=== PATIENT | male | born 1965 | race Caucasian/White ===

== ENCOUNTER → 2017-04-22 | Outpatient (CLI) | payer BC ==
[2017-04-22 13:45] LABS: HEMATOCRIT 52.7 % (42.0-52.0); HEMOGLOBIN 17.1 g/dl (14.0-18.0); MEAN CORPUSCULAR HEMOGLOBIN 30.6 pg (27.0-33.0); MEAN CORPUSCULAR HGB CONC 32.4 g/dl (32.0-36.5); MEAN CORPUSCULAR VOLUME 94.4 fl (80.0-96.0); PLATELET COUNT, AUTOMATED 293 10^3/uL (150-450); RED BLOOD COUNT 5.58 10^6/uL (4.30-6.10); RED CELL DISTRIBUTION WIDTH 13.2 % (11.5-14.5)
[2017-04-22 14:14] LABS: ALBUMIN 3.4 GM/DL (3.2-5.2); ALBUMIN/GLOBULIN RATIO 0.71 (1.00-1.93); ALKALINE PHOSPHATASE 88 U/L (45-117); ALT/SGPT 93 U/L (12-78); ANION GAP 7 MEQ/L (8-16); AST/SGOT 70 U/L (7-37); BILIRUBIN,TOTAL 0.6 MG/DL (0.2-1.0); BLOOD UREA NITROGEN 11 MG/DL (7-18); CALCIUM LEVEL 9.2 MG/DL (8.5-10.1); CARBON DIOXIDE LEVEL 32 MEQ/L (21-32); CHLORIDE LEVEL 100 MEQ/L (98-107); CHOLESTEROL LEVEL 191 MG/DL (<200); CHOLESTEROL RISK RATIO 4.441 (<5); CREATININE FOR GFR 0.98 MG/DL (0.70-1.30); GLOMERULAR FILTRATION RATE > 60.0 (>56); GLUCOSE, FASTING 98 MG/DL (70-100); HDL CHOLESTEROL 43 MG/DL (>40); LDL CHOLESTEROL 127.6 MG/DL (<100); NON-HDL-C 148 MG/DL; NT-PRO BNP 40 PG/ML (<125); SODIUM LEVEL 139 MEQ/L (136-145); TOTAL PROTEIN 8.2 GM/DL (6.4-8.2); TRIGLYCERIDES LEVEL 102 MG/DL (<150)
== END ==
LOC: M SMT 10:32
DX: I50.1 Left ventricular failure, unspecified (principal)

== ENCOUNTER → 2017-06-05 | Outpatient (CLI) | payer BC | LOC: M SMT 10:43 | DX: G47.33 Obstructive sleep apnea (adult) (pediatric) (principal) ==

== ENCOUNTER → 2017-06-05 | Outpatient (CLI) | payer BC ==
[2017-06-05 12:58] LABS: HEMOGLOBIN 16.1 g/dl (14.0-18.0); MEAN CORPUSCULAR HEMOGLOBIN 30.6 pg (27.0-33.0); MEAN CORPUSCULAR HGB CONC 32.9 g/dl (32.0-36.5); PLATELET COUNT, AUTOMATED 230 10^3/uL (150-450); RED BLOOD COUNT 5.27 10^6/uL (4.30-6.10); RED CELL DISTRIBUTION WIDTH 13.4 % (11.5-14.5); WHITE BLOOD COUNT 6.7 10^3/uL (4.0-10.0)
[2017-06-05 13:23] LABS: ALBUMIN 3.4 GM/DL (3.2-5.2); ALBUMIN/GLOBULIN RATIO 0.81 (1.00-1.93); ALKALINE PHOSPHATASE 80 U/L (45-117); ALT/SGPT 100 U/L (12-78); ANION GAP 6 MEQ/L (8-16); AST/SGOT 73 U/L (7-37); BILIRUBIN,TOTAL 0.5 MG/DL (0.2-1.0); BLOOD UREA NITROGEN 15 MG/DL (7-18); CALCIUM LEVEL 8.8 MG/DL (8.5-10.1); CARBON DIOXIDE LEVEL 32 MEQ/L (21-32); CHLORIDE LEVEL 100 MEQ/L (98-107); CREATININE FOR GFR 0.99 MG/DL (0.70-1.30); GLOMERULAR FILTRATION RATE > 60.0 (>56); GLUCOSE, FASTING 100 MG/DL (70-100); NT-PRO BNP 38 PG/ML (<125); POTASSIUM SERUM 4.6 MEQ/L (3.5-5.1); SODIUM LEVEL 138 MEQ/L (136-145); TOTAL PROTEIN 7.6 GM/DL (6.4-8.2)
== END ==
LOC: M SMT 10:47
DX: I50.9 Heart failure, unspecified (principal)

== ENCOUNTER → 2017-06-17 | Outpatient (CLI) | payer BC | LOC: M SLEEP 19:15 | DX: G47.33 Obstructive sleep apnea (adult) (pediatric) (principal) | CPT/HCPCS: 95811 ==

== ENCOUNTER 2019-12-29 14:50 | Inpatient (IN) | payer BC, OTHER, SELFPAY ==
[~2019-12-29] VITALS: Ht 177.8 cm; Wt 255.4 kg
[2019-12-29] MEDS ORDERED: FUROSEMIDE 40MG/4ML VIAL (J1940) IV ONE (15:15)
[2019-12-29 15:24] LABS: BASO % 0.4 % (0.0-1.0); EOS # 0.1 10^3/uL (0.0-0.5); EOS % 0.5 % (0.0-3.0); HEMATOCRIT 50.7 % (42.0-52.0); HEMOGLOBIN 14.9 g/dl (13.5-17.5); LYMPH # 1.1 10^3/uL (1.5-5.0); LYMPH % 11.9 % (24.0-44.0); MEAN CORPUSCULAR HEMOGLOBIN 28.4 pg (27.0-33.0); MEAN CORPUSCULAR HGB CONC 29.4 g/dl (32.0-36.5); MEAN CORPUSCULAR VOLUME 96.6 fl (80.0-96.0); MONO # 1.6 10^3/uL (0.0-0.8); MONO % 16.5 % (0.0-5.0); NEUTROPHILS # 6.6 10^3/uL (1.5-8.5); NEUTROPHILS % 69.6 % (36.0-66.0); PLATELET COUNT, AUTOMATED 278 10^3/uL (150-450); RED BLOOD COUNT 5.25 10^6/uL (4.30-6.10); WHITE BLOOD COUNT 9.5 10^3/uL (4.0-10.0)
--- NOTE | 2019-12-29 15:32 | REPVR ---
PROCEDURE INFORMATION: Exam: XR Chest, 1 View Exam date and time: 12/29/2019 3:06 PM Age: 54 years old Clinical indication: Dyspnea and shortness of breath; Additional info: Dyspnea/cough TECHNIQUE: Imaging protocol: XR of the chest Views: 1 view. COMPARISON: CR CHEST 2 VIEWS 06/05/2017 11:12 AM FINDINGS: Lungs: Diffuse interstitial prominence is again noted with superimposed consolidation or mass right perihilar region. There may be subsegmental atelectasis at the left lung base. Pleural space: No right pleural effusion. There may be a left pleural effusion. Heart/Mediastinum: Cardiomediastinal silhouette is borderline enlarged which may in part be due to AP portable positioning. Bones/joints: No significant skeletal findings. IMPRESSION: 1. Focal consolidation right perihilar region which may be due to pneumonia or an underlying mass. 2. Probable subsegmental atelectasis at the left lung base. Electronically signed by: Maria Del Carmen Schuster On 12/29/2019 15:32:09 PM
[2019-12-29 15:36] LABS: INR 1.01; PROTHROMBIN TIME 13.5 SECONDS (12.5-14.3)
[2019-12-29 15:57] LABS: ALBUMIN 3.1 GM/DL (3.2-5.2); BILIRUBIN,DIRECT 0.2 MG/DL (0.0-0.2); BILIRUBIN,TOTAL 0.5 MG/DL (0.2-1.0); THYROID STIMULATING HORMONE 2.24 uIU/ML (0.358-3.740); THYROXINE (T4) 8.7 UG/DL (4.5-12.0); TOTAL PROTEIN 8.8 GM/DL (6.4-8.2)
[2019-12-29 17:02] LABS: ABG BASE EXCESS 5.3 (-2.0-2.0); ABG HCO3 35.6 MEQ/L (22.0-26.0); ABG O2 SATURATION 98.5 % (95.0-99.0); ABG PARTIAL PRESSURE O2 132.6 mmHg (75.0-100.0); ABG STANDARD HCO3 29.3 MEQ/L (22.0-26.0)
[2019-12-29 17:06] LABS: ABG PARTIAL PRESSURE CO2 79.2 mmHg (35.0-45.0)
[2019-12-29] MEDS ORDERED: NYSTATIN 100,000 UNITS/GM TOPICAL PWD 15 GM TOP PRN (17:30)
--- NOTE | 2019-12-29 17:31 | HPEPDOC ---
[facility] Medical History & Physical Date of Admission Dec 29, 2019 Date of Service: Dec 29, 2019 History and Physical Chief complaint: Presented to the hospital with complaints of shortness of breath History of present illness: Patient is a 54-year-old male with past medical history of congestive heart failure, sleep apnea on CPAP was presented to the emergency room with s hortness of breath over the last 1 month duration. Patient reports that over the course of 1 month hes been experience and worsening shortness of breath., Shortness of breath was worse with exertion but now occurs at rest. Patient denies any chest pain at rest, however, does report chest pain with exertion. Patient describes the chest pain is throbbing in nature and resolves quickly. Patient has an associated dry cough without any expectoration. Has not experience any fevers or chills but does experience intermittent lower extremity swelling. Patient has reported that over the duration 1 year he has lost insurance coverage. Since that point he was unable to maintain his home oxygen that he bleeds into his CPAP device, so he has been without oxygen and his CPAP for greater than 1 year. He is also failed to follow-up with any providers. Patient follows with Dr. Porras and Dr. Cristina, but has last seen 1 year ago. Patient reports a mild headache. Patient denies any nausea, vomiting, abdominal pain, constipation, diarrhea, or urinary discomfort. Has not experience any recent fevers or chills. Past Medical History: Congestive heart failure, sleep apnea on CPAP Past Surgical History: Patient denies any prior surgical history Allergies: See below Medications: See below Family History: - Mother with history of diabetes and father with a history of emphysema Social History: - Denies the use of tobacco. 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 Review of Systems: 10 point review of systems complete, all negative otherwise stated in HPI Physical exam: - Vitals: BP [128/71], HR [101], RR [32], Sat [71%RA], Temp [98.7F] - General: Lying in bed, BIPAP on face, but able to speak, AAOx3 - HEENT: NC, AT, PERRLA, + BIPAP Face mask - CVS: RRR, +S1S2 - Lungs: Fair air entry bilaterally, No appreciable wheezing / rales / rhonchi - Abdomen: Soft, morbidly obese, multiple abdominal folds with areas of irritation, nontender - Extremities: Trace edema at ankles, No calf tenderness - Neuro: No focal motor or sensory deficit - Skin: No visible rashes Assessment and Plan: Acute hypoxic and hypercapnia respiratory failure - possibly 2/2 obesity hypoventilation syndrome and non-compliance with oxygen, possibly 2/2 malignancy, unlikely 2/2 infectious etiology - Patient presented to the emergency room complaints of SOB - On arrival to emergency room, patient appears to have blue lips and was cyanotic - Patient was placed on 100% nonrebreather and subsequently on BiPAP - ABG noted initially with pCO2 retention; improved on follow up - Elevated BNP - No leukocytosis - CXR 12/28: 1. Focal consolidation right perihilar region which may be due to pneumonia or an underlying mass. 2. Probable subsegmental atelectasis at the left lung base. - Will check ECHO, Strict in/outs, daily weight, fluid restriction, telemetry - Will repeat ABG in AM - Will start Furosemide 40 IV BID - Will consult pulmonology - ICU for continued BIPAP / Continuous pulse oximetry Super morbid obesity - BMI of 71.9 - Complicating medical care - Physical with areas of abdominal folds with some irritation - Will start Nystatin powder - Patient will likely require outpatient follow up with PCP for consideration of bariatric surgery DVT prophylaxis - Will start Heparin Vital Signs Vital Signs Date Time Temp Pulse Resp B/P (MAP) Pulse Ox O2 Delivery O2 Flow Rate FiO2 12/29/19 16:00 40 12/29/19 15:20 12/29/19 14:51 98.7 101 32 71 Room Air Laboratory Data Labs 24H Laboratory Tests 2 12/29/19 15:06: Immature Granulocyte % (Auto) 1.1, Neutrophils (%) (Auto) 69.6H, Lymphocytes (%) (Auto) 11.9L, Monocytes (%) (Auto) 16.5H, Eosinophils (%) (Auto) 0.5, Basophils (%) (Auto) 0.4, Neutrophils # (Auto) 6.6, Lymphocytes # (Auto) 1.1L, Monocytes # (Auto) 1.6H, Eosinophils # (Auto) 0.1, Basophils # (Auto) 0.0, Nucleated Red Blood Cells % (auto) 0.5H, Prothrombin Time 13.5, Prothromb Time International Ratio 1.01, Lactic Acid Level 2.4*H, Total Bilirubin 0.5, Direct Bilirubin 0.2, Aspartate Amino Transf (AST/SGOT) 31, Alanine Aminotransferase (ALT/SGPT) 35, Alkaline Phosphatase 108, CW-Zbm-T-Type Natriuretic Peptide 1740H, Total Protein 8.8H, Albumin 3.1L, Albumin/Globulin Ratio 0.5, Thyroid Stimulating Hormone (TSH) 2.240, Thyroxine (T4) 8.7 12/29/19 15:12: Magnesium Level 2.3 12/29/19 15:14: POC Glucose (Misc Panel) 130H, POC Sodium (Misc Panel) 139, POC Potassium (Misc Panel) 4.4, POC Chloride (Misc Panel) 94L, POC Total CO2 (Misc Panel) 33.0H, POC Blood Urea Nitrogen (Misc Panel 17, POC Ionized Calcium (Misc Panel) 4.8, POC Creatinine (Misc Panel) 0.9, POC Hematocrit (Misc Panel) 52.0H 12/29/19 15:16: POC Troponin I (Misc) 0.02 12/29/19 16:54: Blood Gas Bicarbonate Standard 29.3H, Arterial Blood pH 7.270L, Arterial Blood Partial Pressure CO2 79.2*H, Arterial Blood Partial Pressure O2 132.6H, Arterial Blood Total CO2 38.0H, Arterial Blood HCO3 35.6H, Arterial Blood Base Excess 5.3H, Arterial Blood Oxygen Saturation 98.5 CBC/BMP Laboratory Tests 12/29/19 15:06 Microbiology Microbiology 12/29/19 Blood Culture, Received Pending 12/29/19 Blood Culture, Received Pending Home Medications No Active Prescriptions or Reported Meds Allergies Coded Allergies: No Known Allergies (Unverified , 12/29/19) NISA PEÑA MD Dec 29, 2019 17:31
--- NOTE | 2019-12-29 18:36 | ECGEPIP ---
[facility] - ED Test Date: 2019-12-29 Pat Name: ALFONSO FAUSTIN Department: Room: - Gender: Male Epic Cupid Analyst: troy : 1965 Requested By: TAMARA Dockery Order Number: [id number] Reading MD: Noemy García Measurements Intervals [place] Rate: 90 P: 57 [place]: 170 QRS: 11 QRSD: 88 T: 47 QT: 344 QTc: 423 Interpretive Statements SINUS RHYTHM WITH OCCASIONAL VENTRICULAR PREMATURE COMPLEXES LOW QRS VOLTAGE IN PRECORDIAL LEADS PRWP NO PRIOR Electronically Signed on 12-29-2019 18:36:07 EDT by Noemy García
[2019-12-29 20:48] VITALS: BP 142/90
[2019-12-29 21:00] VITALS: BP 132/71
[2019-12-29] MEDS: PANTOPRAZOLE 40MG VIAL (C9113 PER 1) IV SCH (21:56)
[2019-12-29] MEDS: HEPARIN SOD (PORCINE) 5000UNITS/ML 1ML VIAL/SYRINGE SC SCH (21:57)
[2019-12-29 22:00] VITALS: BP 103/65
[2019-12-29 23:00] VITALS: BP 109/59
[2019-12-30] VITALS (24 sets, daily range): BP systolic 99–163; BP diastolic 52–80
[2019-12-30 05:17] LABS: HEMATOCRIT 49.1 % (42.0-52.0); HEMOGLOBIN 14.1 g/dl (13.5-17.5); MEAN CORPUSCULAR HGB CONC 28.7 g/dl (32.0-36.5); MEAN CORPUSCULAR VOLUME 97.6 fl (80.0-96.0); PLATELET COUNT, AUTOMATED 233 10^3/uL (150-450); RED BLOOD COUNT 5.03 10^6/uL (4.30-6.10)
[2019-12-30 05:44] LABS: ABG BASE EXCESS 7.5 (-2.0-2.0); ABG HCO3 38.8 MEQ/L (22.0-26.0); ABG O2 SATURATION 94.3 % (95.0-99.0); ABG PARTIAL PRESSURE O2 76.8 mmHg (75.0-100.0); ABG STANDARD HCO3 31.2 MEQ/L (22.0-26.0); ABG TOTAL CO2 41.7 MEQ/L (22.0-29.0)
[2019-12-30 05:45] LABS: ABG PARTIAL PRESSURE CO2 93.1 mmHg (35.0-45.0); ABG pH (ARTERIAL) 7.238 UNITS (7.350-7.450)
[2019-12-30 05:45] LABS: ALBUMIN 2.7 GM/DL (3.2-5.2); ALT/SGPT 31 U/L (12-78); BILIRUBIN,TOTAL 0.5 MG/DL (0.2-1.0); BLOOD UREA NITROGEN 15 MG/DL (7-18); CALCIUM LEVEL 7.9 MG/DL (8.5-10.1); CARBON DIOXIDE LEVEL 37 MEQ/L (21-32); CHLORIDE LEVEL 98 MEQ/L (98-107); CHOLESTEROL LEVEL 132 MG/DL (< 200); CPK CREATINE PHOSPHOKINASE 126 U/L (39-308); CREATININE FOR GFR 0.88 MG/DL (0.70-1.30); GLOMERULAR FILTRATION RATE > 60.0 (>56); GLUCOSE, FASTING 103 MG/DL (70-100); LDH LACTATE DEHYDROGENASE 236 U/L (87-241); MAGNESIUM LEVEL 2.1 MG/DL (1.8-2.4); PHOSPHORUS LEVEL 4.3 MG/DL (2.5-4.9); POTASSIUM SERUM 4.3 MEQ/L (3.5-5.1); SODIUM LEVEL 138 MEQ/L (136-145); TOTAL PROTEIN 7.2 GM/DL (6.4-8.2); TRIGLYCERIDES LEVEL 107 MG/DL (<150)
[2019-12-30] MEDS: HEPARIN SOD (PORCINE) 5000UNITS/ML 1ML VIAL/SYRINGE SC SCH ×3 (06:31→21:20)
--- NOTE | 2019-12-30 08:11 | ECHO ---
DATE OF PROCEDURE: 12/29/2019 Age: 54 Gender: Male REFERRING PHYSICIAN: Leni Real M.D. PATIENT LOCATION: Intensive care unit (ICU). REASON FOR STUDY: Shortness of breath. 2D MEASUREMENTS: IVS 1.5 cm LV 4.5 cm LVPW 1.4 cm LA 4.3 cm Aorta 3.5 cm DOPPLER MEASUREMENT Peak velocity across the aortic valve 1.8 m/s Peak velocity across the LVOT 1.1 m/s Peak gradient across the aortic valve 13 mmHg Mitral E 0.8 Mitral A 1.0 with a ratio of 0.9 Maximum transverse velocity 3.0 m/s 2D COMMENTS: 1. Technically limited study due to poor acoustic window. 2. The left ventricular size is normal with a mildly increased left ventricular wall thickness. Left ventricular systolic function is normal, estimated at 60% to 65%. 3. Mildly enlarged left atrium. The right atrium and the right ventricle appear to be mildly enlarged. The right ventricle free wall may be hypokinetic. 4. The atrial septum appeared to be normal without evidence of defect or shunt. 5. Normal aortic root. 6. No pericardial effusion seen. 7. Mildly calcified aortic valve, leaflet excursion appears to be normal. Mildly calcified mitral annulus with normal anterior mitral valve leaflet motion. Normal tricuspid valve. The pulmonic valve appeared to be normal in limited views. The proximal pulmonary artery branches were not well visualized. 8. The inferior vena cava was not well visualized. Doppler detects mild tricuspid regurgitation. The calculated pulmonary artery systolic pressure varies between 40 to 50 mmHg. Abnormal relaxation pattern was noted across the mitral valve leaflets, as well as the mitral valve annulus consistent with features of grade 1 left ventricular diastolic dysfunction. IMPRESSION: 1. Normal global left ventricular systolic function with mild concentric left ventricular hypertrophy. There are some features of left ventricular diastolic dysfunction manifested by abnormal relaxation. 2. Aortic valve sclerosis with trivial aortic stenosis, but no aortic regurgitation. 3. Mildly enlarged left atrium at 4.3 cm. Mitral annulus calcification detected, but no evidence of significant mitral regurgitation or stenosis. 4. Mild tricuspid regurgitation with moderate pulmonary hypertension. 5. Dilated right heart chambers with some degree of right ventricular systolic dysfunction. MTDD
[2019-12-30] MEDS: FUROSEMIDE 100MG/10ML VIAL (J1940) IV SCH ×3 (08:16→17:15)
--- NOTE | 2019-12-30 10:13 | IPNPDOC ---
Text Note Date of Service The patient was seen on 12/30/19. NOTE Subjective: Patient is a 54-year-old male with past medical history of congestive heart failure, sleep apnea on CPAP was presented to the emergency room with shortness of breath over the last 1 month duration. Patient reports that over the course of 1 month hes been experience and worsening shortness of breath., Shortness of breath was worse with exertion but now occurs at rest. Patient denies any chest pain at rest, however, does report chest pain with exertion. Patient describes the chest pain is throbbing in nature and resolves quickly. Patient has an associated dry cough without any expectoration. Has not experience any fevers or chills but does experience intermittent lower extremity swelling. Patient has reported that over the duration of 1 year he has lost insurance coverage. Since that point he was unable to maintain his home oxygen that he bleeds into his CPAP device, so he has been without oxygen and his CPAP for greater than 1 year. He is also failed to follow-up with any providers. Patient follows with Dr. Porras and Dr. Cristina, but has last seen 1 year ago. Patient was seen and examined at the bedside. Currently patient reports that he feels fine. Denies any nausea, vomiting, chest pain, palpitations, cough, abdominal pain, diarrhea or constipation. Objective: Vitals (See below) General: Lying in bed, appears comfortable, AAOx3 HEENT: NC, AT, + BIPAP mask CVS: +S1S2 Lungs: Fair air entry b/l, no appreciable wheezing, rhonchi or rales Abdomen: Soft, ND, NT Extremities: Trace to no pitting edema, - Calf tenderness Assessment and plan: Acute hypoxic and hypercapnia respiratory failure - possibly 2/2 obesity hypoventilation syndrome and non-compliance with oxygen, possibly 2/2 malignancy, unlikely 2/2 infectious etiology - Presented to ER with SOB and was found to have blue lips and was cyanotic - Patient was placed on 100% nonrebreather and subsequently on BiPAP - ABG noted initially with pCO2 retention; improved initially; repeat this AM with again retention - Elevated BNP - No leukocytosis - CXR 12/28: 1. Focal consolidation right perihilar region which may be due to pneumonia or an underlying mass. 2. Probable subsegmental atelectasis at the left lung base. - ECHO report pending, Strict in/outs, daily weight, fluid restriction, telemetry - c/w Furosemide 40 IV BID - Pulmonology on consultation; appreciate their input - Working with PFS to ensure that he gets insurance coverage Right lung opacity - possibly 2/2 malignancy, possibly 2/2 sarcoidosis - Has had biopsy completed in the past that was consistent with Sarcoidosis - Will likely require repeat imaging - Unable to obtain CT chest given his obesity Super morbid obesity - BMI of 82.8 - Complicating medical care - Physical with areas of abdominal folds with some irritation - c/w Nystatin powder - Patient will likely require outpatient follow up with PCP for consideration of bariatric surgery DVT prophylaxis - c/w Heparin VS,Fishbone, I+O VS, Fishbone, I+O Laboratory Tests 12/29/19 15:06 12/30/19 04:47 Vital Signs Date Time Temp Pulse Resp B/P (MAP) Pulse Ox O2 Delivery O2 Flow Rate FiO2 12/30/19 07:45 40 12/30/19 06:00 85 110/52 (71) 92 NIPPV (BIPAP/CPAP) 12/30/19 05:00 23 12/30/19 04:00 98.0 I&O- Last 24 Hours up to 6 AM 12/30/19 06:00 Intake Total 90 ml Output Total 1250 ml Balance -1160 ml NSIA PEÑA MD Dec 30, 2019 10:13
--- NOTE | 2019-12-30 16:13 | CR ---
CRITICAL CARE CONSULTATION NOTE DATE: 12/29/2019 SUBJECTIVE: I was called to see this patient in the intensive care unit, a 54-year-old male, with acute hypoxic hypercarbic respiratory failure. He presented to the emergency department with progressively increasing dyspnea over the course of the last two days. There was no cough and no sputum production. He has a significant past medical history of obesity, obstructive sleep apnea syndrome, sarcoidosis (biopsy 2010). OBJECTIVE: At the bedside, his temperature is 98, pulse rate 78, respirations 26, blood pressure 141/80, and he is somnolent. HEENT: His oral mucosa is pink. Airway is quite small. Neck is delacruz. No meningismus. Jugular veins are unable to be seen. Heart sounds are irregular without appreciable murmur, quite distant. Breath sounds are diminished bilaterally with bilateral rales. Abdomen is morbidly obese with no appreciable bowel sounds. The extremities are cool, pulses are palpable, and nails show no clubbing. There is 1-2 mm of pitting edema at the ankle bilaterally. DIAGNOSTIC STUDIES: Chest x-ray shows prominent interstitial markings consistent with edema. His electrolytes are sodium 139, potassium 4.4, chloride 94, CO2 of 33, BUN 17, creatinine 0.9. White cell count is 9.5, hemoglobin 14.9, hematocrit 50.7, platelet count 377,000. Serum lactate is 2.4. Troponin is less than 0.02. BNP is 1740. Arterial blood gas showed pH of 7.27, pCO2 of 72, pO2 of 132. ASSESSMENT AND PLAN: The primary problem requiring critical attention is acute hypoxic hypercarbic respiratory failure. We will initiate noninvasive positive pressure ventilation and follow gas exchange to determine if formal intubation and mechanical ventilatory support will be necessary. Pulmonary edema Diuresis has been initiated. Henson catheter is in place. We will watch urine output closely and aggressively diuresis to reduce his intravascular fluid volume. Obesity hypoventilation syndrome The patient will likely require home BiPAP. Deep vein thrombosis (DVT) prophylaxis This is being addressed with heparin. We will add sequential hose as his risk for DVT is great. Ulcer prophylaxis This will be addressed with Protonix. I have reviewed the case with the attending hospitalist and with the ICU team. We will facility transfer now from the emergency department to the ICU for close monitoring. His condition is critical. Prognosis is guarded. One hour and 27 minutes were spent in the provision of bedside critical care and coordination exclusive of procedure time. MTDD
--- NOTE | 2019-12-30 16:15 | CCN ---
DATE: 12/30/2019 The patient is seen in the intensive care unit on noninvasive positive pressure ventilation. This is hospital day #2, intensive care unit (ICU) day #2. Over the past 12 hours he has tolerated noninvasive ventilation reasonably well. At bedside his temperature is 98, pulse rate 85, respirations 24, blood pressure 110/52. Intake and output for the past 24 hours: 30 mL in, 900 mL out, since midnight 60 in, 350 out. His weight on admission was 264 kg, weight this morning 261. PHYSICAL EXAMINATION: He is ill appearing. His oral mucosa is pink. Neck is supple and quite delacruz. His jugular veins are unable to be appreciated. There is no stridor. Heart sounds are regular, distant. Breath sounds are coarse and diminished. Chest is symmetric. There is no accessory muscle use at rest. Abdomen is soft, morbidly obese with some cellulitic-like changes in the skin inferiorly. Extremities show some edema. Peripheral pulses are palpable. Diagnostic studies were reviewed. Chest x-rays and images from his previous CTs are once again reviewed. There is a prominence in the interstitium which dates back to 2018. The right middle lobe infiltrate appears new. His sodium is 138, potassium 4.3, chloride 98, CO2 of 37, BUN 15, creatinine 0.88, glucose 103. White cell count is 8, hemoglobin 14, hematocrit 49, platelet count 233,000. Magnesium is 2.1, phosphorus 4.3. LDH 236. His BNP was 1740. AST 29, ALT 31, albumin 2.7. Arterial blood gases showed a pH 7.23, pCO2 of 93, pO2 of 76. Blood cultures have so far been negative times two. His COVID test was negative. The primary problem requiring critical attention is acute hypoxic hypercarbic respiratory failure. His CO2 is elevated. I will increase the pressure window on his noninvasive ventilation and follow gas exchange. Pulmonary edema. We have been unable to secure a Henson catheter, but his intake and output appear negative, and his weight is down. I agree with continuing diuresis, and I have discussed with the primary service the possibility of a urology consultation. Sarcoidosis. The patient has a historical diagnosis of sarcoidosis established by biopsy in 2009. Reactive of pulmonary sarcoid is a possibility. We will obtain an angiotensin-converting enzyme (VIDA) level as a possible measure of disease activity. Deep venous thrombosis (DVT) prophylaxis is being addressed with subcutaneous heparin and sequential hose. Ulcer prophylaxis is being addressed with Protonix. Glycemic control is reasonable at this point. Will continue close monitoring. There was 48 minutes spent in the provision of bedside critical care and coordination exclusive of any procedure time. YOUNG
[2019-12-30] MEDS: PANTOPRAZOLE 40MG VIAL (C9113 PER 1) IV SCH (21:20)
[2019-12-30 21:48] LABS: ABG BASE EXCESS 9.9 (-2.0-2.0); ABG HCO3 42.5 MEQ/L (22.0-26.0); ABG PARTIAL PRESSURE CO2 105.6 mmHg (35.0-45.0); ABG PARTIAL PRESSURE O2 100.9 mmHg (75.0-100.0); ABG STANDARD HCO3 33.7 MEQ/L (22.0-26.0); ABG TOTAL CO2 45.8 MEQ/L (22.0-29.0); ABG pH (ARTERIAL) 7.223 UNITS (7.350-7.450)
[2019-12-31] VITALS (25 sets, daily range): BP systolic 98–175; BP diastolic 50–80
[2019-12-31 05:23] LABS: HEMATOCRIT 51.9 % (42.0-52.0); HEMOGLOBIN 14.8 g/dl (13.5-17.5); MEAN CORPUSCULAR HEMOGLOBIN 28.6 pg (27.0-33.0); MEAN CORPUSCULAR HGB CONC 28.5 g/dl (32.0-36.5); MEAN CORPUSCULAR VOLUME 100.4 fl (80.0-96.0); PLATELET COUNT, AUTOMATED 200 10^3/uL (150-450); RED BLOOD COUNT 5.17 10^6/uL (4.30-6.10); WHITE BLOOD COUNT 7.8 10^3/uL (4.0-10.0)
[2019-12-31 05:26] LABS: ABG BASE EXCESS 16.7 (-2.0-2.0); ABG HCO3 50.8 MEQ/L (22.0-26.0); ABG O2 SATURATION 97.8 % (95.0-99.0); ABG PARTIAL PRESSURE O2 107.2 mmHg (75.0-100.0); ABG STANDARD HCO3 40.8 MEQ/L (22.0-26.0); ABG TOTAL CO2 54.6 MEQ/L (22.0-29.0)
[2019-12-31 05:27] LABS: ABG PARTIAL PRESSURE CO2 123.5 mmHg (35.0-45.0); ABG pH (ARTERIAL) 7.232 UNITS (7.350-7.450)
[2019-12-31 05:59] LABS: ALBUMIN 2.7 GM/DL (3.2-5.2); ALT/SGPT 28 U/L (12-78); BILIRUBIN,TOTAL 0.8 MG/DL (0.2-1.0); BLOOD UREA NITROGEN 13 MG/DL (7-18); CALCIUM LEVEL 7.9 MG/DL (8.5-10.1); CARBON DIOXIDE LEVEL 44 MEQ/L (21-32); CHLORIDE LEVEL 91 MEQ/L (98-107); CHOLESTEROL LEVEL 142 MG/DL (< 200); CPK CREATINE PHOSPHOKINASE 85 U/L (39-308); CREATININE FOR GFR 0.83 MG/DL (0.70-1.30); GLOMERULAR FILTRATION RATE > 60.0 (>56); GLUCOSE, FASTING 87 MG/DL (70-100); LDH LACTATE DEHYDROGENASE 250 U/L (87-241); MAGNESIUM LEVEL 2.1 MG/DL (1.8-2.4); PHOSPHORUS LEVEL 4.2 MG/DL (2.5-4.9); POTASSIUM SERUM 4.3 MEQ/L (3.5-5.1); SODIUM LEVEL 137 MEQ/L (136-145); TOTAL PROTEIN 7.7 GM/DL (6.4-8.2); TRIGLYCERIDES LEVEL 109 MG/DL (<150)
[2019-12-31] MEDS: HEPARIN SOD (PORCINE) 5000UNITS/ML 1ML VIAL/SYRINGE SC SCH ×3 (06:57→21:14)
[2019-12-31] MEDS ORDERED: amLODIPine 10 MG TAB PO ONE (08:00)
[2019-12-31 08:19] LABS: ABG BASE EXCESS 14.7 (-2.0-2.0); ABG HCO3 46.6 MEQ/L (22.0-26.0); ABG O2 SATURATION 91.7 % (95.0-99.0); ABG PARTIAL PRESSURE O2 62.9 mmHg (75.0-100.0); ABG STANDARD HCO3 38.5 MEQ/L (22.0-26.0); ABG TOTAL CO2 49.7 MEQ/L (22.0-29.0); ABG pH (ARTERIAL) 7.294 UNITS (7.350-7.450)
[2019-12-31 08:23] LABS: ABG PARTIAL PRESSURE CO2 98.3 mmHg (35.0-45.0)
--- NOTE | 2019-12-31 09:53 | IPNPDOC ---
Text Note Date of Service The patient was seen on 12/31/19. NOTE Subjective: Patient is a 54-year-old male with past medical history of congestive heart failure, sleep apnea on CPAP was presented to the emergency room with shortness of breath over the last 1 month duration. Patient reports that over the course of 1 month hes been experience and worsening shortness of breath., Shortness of breath was worse with exertion but now occurs at rest. Patient denies any chest pain at rest, however, does report chest pain with exertion. Patient describes the chest pain is throbbing in nature and resolves quickly. Patient has an associated dry cough without any expectoration. Has not experience any fevers or chills but does experience intermittent lower extremity swelling. Patient has reported that over the duration of 1 year he has lost insurance coverage. Since that point he was unable to maintain his home oxygen that he bleeds into his CPAP device, so he has been without oxygen and his CPAP for greater than 1 year. He is also failed to follow-up with any providers. Patient follows with Dr. Porras and Dr. Cristina, but has last seen 1 year ago. Patient was seen and examined at the bedside. Patient was slightly confused this morning, however was oriented on exam. Denied any chest pain, cough, N/V, abdomi nal pain, C/D or urinary discomfort. Objective: Vitals (See below) General: Laying flat in bed, NAD, AAOx3 HEENT: Atraumatic, + BIPAP mask CVS: +S1S2 Lungs: Diminished lung sounds, no evidence of rhonchi, rales or wheezing Abdomen: Soft, nondistended, nontender, significance obesity Extremities: No pitting edema, - Calf tenderness Assessment and plan: Acute hypoxic and hypercapnia respiratory failure - possibly 2/2 obesity hypoventilation syndrome and non-compliance with oxygen, possibly 2/2 malignancy, unlikely 2/2 infectious etiology - Presented to ER with SOB and was found to have blue lips and was cyanotic; Patient was placed on 100% nonrebreather and subsequently on BiPAP - This morning patient was confused because elevated PCO2; has since improved - Elevated BNP - No leukocytosis - CXR 12/28: 1. Focal consolidation right perihilar region which may be due to pneumonia or an underlying mass. 2. Probable subsegmental atelectasis at the left lung base. - ECHO report pending, Strict in/outs, daily weight, fluid restriction, te lemetry - s/p Furosemide - Pulmonology on consultation; appreciate their input - Working with PFS to ensure that he gets insurance coverage Right lung opacity - possibly 2/2 malignancy, possibly 2/2 sarcoidosis - Has had biopsy completed in the past that was consistent with Sarcoidosis - Will likely require repeat imaging - Unable to obtain CT chest given his obesity HTN - Blood pressure slightly elevated - Furosemide has been discontinued - Patient has been started on amlodipine with holding parameters Super morbid obesity - BMI of 82.8 - Complicating medical care - Physical with areas of abdominal folds with some irritation - c/w Nystatin powder - Patient will likely require outpatient follow up with PCP for consideration of bariatric surgery DVT prophylaxis - c/w Heparin Disposition: - Working with PFS to establish outpatient insurance coverage; to ensure patient can get oxygen/possible BiPAP VS,Fishbone, I+O VS, Fishbone, I+O Laboratory Tests 12/31/19 04:31 Vital Signs Date Time Temp Pulse Resp B/P (MAP) Pulse Ox O2 Delivery O2 Flow Rate FiO2 12/31/19 09:00 80 24 112/65 (81) 91 NIPPV (BIPAP/CPAP) 30 12/31/19 08:00 98.2 I&O- Last 24 Hours up to 6 AM 12/31/19 06:00 Intake Total 410 ml Output Total 3375 ml Balance -2965 ml NISA PEÑA MD Dec 31, 2019 09:53
[2019-12-31] MEDS: PANTOPRAZOLE 40MG VIAL (C9113 PER 1) IV SCH (21:10)
[2020-01-01] VITALS (24 sets, daily range): BP systolic 99–151; BP diastolic 49–87
[2020-01-01 04:13] LABS: HEMATOCRIT 48.3 % (42.0-52.0); MEAN CORPUSCULAR HEMOGLOBIN 28.3 pg (27.0-33.0); MEAN CORPUSCULAR VOLUME 97.6 fl (80.0-96.0); PLATELET COUNT, AUTOMATED 222 10^3/uL (150-450); RED BLOOD COUNT 4.95 10^6/uL (4.30-6.10); WHITE BLOOD COUNT 7.9 10^3/uL (4.0-10.0)
[2020-01-01 04:39] LABS: ALBUMIN 2.6 GM/DL (3.2-5.2); ALT/SGPT 23 U/L (12-78); BILIRUBIN,TOTAL 0.7 MG/DL (0.2-1.0); BLOOD UREA NITROGEN 14 MG/DL (7-18); CALCIUM LEVEL 8.4 MG/DL (8.5-10.1); CARBON DIOXIDE LEVEL 42 MEQ/L (21-32); CHLORIDE LEVEL 91 MEQ/L (98-107); CHOLESTEROL LEVEL 132 MG/DL (< 200); CPK CREATINE PHOSPHOKINASE 101 U/L (39-308); CREATININE FOR GFR 0.72 MG/DL (0.70-1.30); GLOMERULAR FILTRATION RATE > 60.0 (>56); GLUCOSE, FASTING 88 MG/DL (70-100); LDH LACTATE DEHYDROGENASE 182 U/L (87-241); MAGNESIUM LEVEL 2.1 MG/DL (1.8-2.4); POTASSIUM SERUM 4.2 MEQ/L (3.5-5.1); SODIUM LEVEL 137 MEQ/L (136-145); TOTAL PROTEIN 7.7 GM/DL (6.4-8.2); TRIGLYCERIDES LEVEL 118 MG/DL (<150)
[2020-01-01] MEDS: HEPARIN SOD (PORCINE) 5000UNITS/ML 1ML VIAL/SYRINGE SC SCH ×3 (06:20→21:11)
[2020-01-01 08:06] LABS: ABG BASE EXCESS 11.1 (-2.0-2.0); ABG HCO3 39.8 MEQ/L (22.0-26.0); ABG O2 SATURATION 94.7 % (95.0-99.0); ABG PARTIAL PRESSURE O2 72.4 mmHg (75.0-100.0); ABG STANDARD HCO3 34.8 MEQ/L (22.0-26.0); ABG pH (ARTERIAL) 7.364 UNITS (7.350-7.450)
[2020-01-01 08:17] LABS: ABG PARTIAL PRESSURE CO2 71.4 mmHg (35.0-45.0)
[2020-01-01] MEDS ORDERED: NEUTRA-PHOS 1.5 GM PACKET PO ONE (09:00)
--- NOTE | 2020-01-01 10:37 | IPNPDOC ---
Text Note Date of Service The patient was seen on 01/01/20. NOTE Subjective: Patient is a 54-year-old male with past medical history of congestive heart failure, sleep apnea on CPAP was presented to the emergency room with shortness of breath over the last 1 month duration. Patient reports that over the course of 1 month hes been experience and worsening shortness of breath., Shortness of breath was worse with exertion but now occurs at rest. Patient denies any chest pain at rest, however, does report chest pain with exertion. Patient describes the chest pain is throbbing in nature and resolves quickly. Patient has an associated dry cough without any expectoration. Has not experience any fevers or chills but does experience intermittent lower extremity swelling. Patient has reported that over the duration of 1 year he has lost insurance coverage. Since that point he was unable to maintain his home oxygen that he bleeds into his CPAP device, so he has been without oxygen and his CPAP for greater than 1 year. He is also failed to follow-up with any providers. Patient follows with Dr. Porras and Dr. Cristina, but has last seen 1 year ago. Patient was seen and examined at the bedside. . He was seen sitting up at the edge of the bed. Reports that his breathing is doing better. Denies any cough or chest pain. Has not experience any nausea, vomiting, abdominal pain, diarrhea, or urinary discomfort. Objective: Vitals (See below) General: Sitting up at the edge of the bed, is not appears to be in any acute distress, appears comfortable, AAOx3 HEENT: NC, AT, face mask in place CVS: +S1S2 Lungs: Air entry is fair bilaterally without evidence of rhonchi, crackles or wheezing Abdomen: significant obesity none. Distended/nontender Extremities: LE are without edema , - Calf tenderness Assessment and plan: Acute hypoxic and hypercapnia respiratory failure - possibly 2/2 obesity hypoventilation syndrome and non-compliance with oxygen, possibly 2/2 pulmonary HTN, possibly 2/2 malignancy, unlikely 2/2 infectious etiology - On arrival to ER, patient was SOB, had blue lips - cyanotic; was placed on 100% nonrebreather, then on BiPAP - ABG noted; improved - No leukocytosis - CXR 12/28: 1. Focal consolidation right perihilar region which may be due to pneumonia or an underlying mass. 2. Probable subsegmental atelectasis at the left lung base. - ECHO 12/28: Features of diastolic dysfunction, mild tricuspid regurg with moderate pulmonary hypertension, dilated right heart chambers with some degree of right ventricular systolic dysfunction - Strict in/outs, daily weight, fluid restriction, telemetry - s/p Furosemide - Pulmonology on consultation; appreciate their input - Working with PFS to ensure that he gets insurance coverage Positive blood cultures - possibly 2/2 contaminant - Currently patient is hemodynamically stable and afebrile - No leukocytosis - Will repeat Blood cultures - Hold of on antibiotics at this time Right lung opacity - possibly 2/2 malignancy, possibly 2/2 sarcoidosis - Has had biopsy completed in the past that was consistent with Sarcoidosis - Will likely require repeat imaging; however unable to obtain CT chest given his obesity HTN - Blood pressure slightly elevated - s/p Furosemide - c/w amlodipine with holding parameters Super morbid obesity - BMI of 82.8 - Complicating medical care - Physical with areas of abdominal folds with some irritation - c/w Nystatin powder - Patient will likely require outpatient follow up with PCP for consideration of bariatric surgery DVT prophylaxis - c/w Heparin Disposition: - Working with PFS to establish outpatient insurance coverage; to ensure patient can get oxygen/possible BiPAP - Possible trial off BIPAP today VS,Fishbone, I+O VS, Fishbone, I+O Laboratory Tests 01/01/20 03:52 Vital Signs Date Time Temp Pulse Resp B/P (MAP) Pulse Ox O2 Delivery O2 Flow Rate FiO2 01/01/20 09:00 95 116/66 (83) 92 Nasal Cannula 2.0 01/01/20 08:15 21 01/01/20 08:00 26 01/01/20 07:00 98.5 I&O- Last 24 Hours up to 6 AM 01/01/20 06:00 Intake Total 240 ml Output Total 425 ml Balance -185 ml NISA PEÑA MD Jan 01, 2020 10:37
[2020-01-01] MEDS: PANTOPRAZOLE 40MG VIAL (C9113 PER 1) IV SCH (21:11)
[2020-01-02] VITALS (22 sets, daily range): BP systolic 89–131; BP diastolic 47–75
[2020-01-02 05:16] LABS: HEMOGLOBIN 13.8 g/dl (13.5-17.5); MEAN CORPUSCULAR HEMOGLOBIN 28.2 pg (27.0-33.0); MEAN CORPUSCULAR HGB CONC 29.4 g/dl (32.0-36.5); MEAN CORPUSCULAR VOLUME 95.9 fl (80.0-96.0); PLATELET COUNT, AUTOMATED 198 10^3/uL (150-450); WHITE BLOOD COUNT 5.6 10^3/uL (4.0-10.0)
[2020-01-02] MEDS: HEPARIN SOD (PORCINE) 5000UNITS/ML 1ML VIAL/SYRINGE SC SCH ×3 (05:34→22:30)
[2020-01-02 05:40] LABS: BLOOD UREA NITROGEN 17 MG/DL (7-18); CALCIUM LEVEL 8.4 MG/DL (8.5-10.1); CARBON DIOXIDE LEVEL 42 MEQ/L (21-32); CHLORIDE LEVEL 95 MEQ/L (98-107); CREATININE FOR GFR 0.82 MG/DL (0.70-1.30); GLOMERULAR FILTRATION RATE > 60.0 (>56); GLUCOSE, FASTING 90 MG/DL (70-100); MAGNESIUM LEVEL 2.1 MG/DL (1.8-2.4); POTASSIUM SERUM 3.6 MEQ/L (3.5-5.1); SODIUM LEVEL 138 MEQ/L (136-145)
[2020-01-02 05:43] LABS: ABG BASE EXCESS 12.2 (-2.0-2.0); ABG HCO3 41.7 MEQ/L (22.0-26.0); ABG O2 SATURATION 98.8 % (95.0-99.0); ABG PARTIAL PRESSURE O2 135.2 mmHg (75.0-100.0); ABG TOTAL CO2 44.1 MEQ/L (22.0-29.0)
[2020-01-02 05:44] LABS: ABG PARTIAL PRESSURE CO2 79.1 mmHg (35.0-45.0)
--- NOTE | 2020-01-02 09:08 | IPNPDOC ---
Text Note Date of Service The patient was seen on 01/02/20. NOTE Subjective: Patient is a 54-year-old male with past medical history of congestive heart failure, sleep apnea on CPAP was presented to the emergency room with shortness of breath over the last 1 month duration. Patient reports that over the course of 1 month hes been experience and worsening shortness of breath., Shortness of breath was worse with exertion but now occurs at rest. Patient denies any chest pain at rest, however, does report chest pain with exertion. Patient describes the chest pain is throbbing in nature and resolves quickly. Patient has an associated dry cough without any expectoration. Has not experience any fevers or chills but does experience intermittent lower extremity swelling. Patient has reported that over the duration of 1 year he has lost insurance coverage. Since that point he was unable to maintain his home oxygen that he bleeds into his CPAP device, so he has been without oxygen and his CPAP for greater than 1 year. He is also failed to follow-up with any providers. Patient follows with Dr. Porras and Dr. Cristina, but has last seen 1 year ago. Patient was seen and examined at the bedside. Currently patient is laying in bed, does not appear to be in any acute distress. Reports that his breathing is doing fine. Denies any cough or chest pain. Denies any nausea, vomiting, abdominal pain, diarrhea, or discomfort with urination. Objective: Vitals (See below) General: Lying in bed, does not appear to be in any acute distress, comfortable, awake, alert and oriented 3 HEENT: Normocephalic and atraumatic. Patient has BiPAP facemask in place CVS: +S1S2 Lungs: Air entry appears to be symmetric. No evidence of wheezing, crackles or rhonchi Abdomen: significant obesity, no distention / nontender Extremities: No edema of LE, - Calf tenderness Assessment and plan: Acute hypoxic and hypercapnia respiratory failure - possibly 2/2 obesity hypoventilation syndrome and non-compliance with oxygen, possibly 2/2 pulmonary HTN, possibly 2/2 malignancy, unlikely 2/2 infectious etiology - On arrival to ER, patient was SOB, had blue lips - cyanotic; was placed on 100% nonrebreather, then on BiPAP - ABG noted - remains relatively stable - No leukocytosis - CXR 12/28: 1. Focal consolidation right perihilar region which may be due to pneumonia or an underlying mass. 2. Probable subsegmental atelectasis at the left lung base. - ECHO 12/28: Features of diastolic dysfunction, mild tricuspid regurgitation with moderate pulmonary hypertension, dilated right heart chambers with some degree of right ventricular systolic dysfunction - c/w Strict in/outs, daily weight, fluid restriction, telemetry - s/p Furosemide and Amlodipine - Pulmonology on consultation; appreciate their input - PFS on consult to help ensure insurance coverage / equipment coverage as outpatient Positive blood cultures (1 of 2) - possibly 2/2 contaminant (Moraxella Ovis) - Remains hemodynamically stable and afebrile - No leukocytosis - Blood cultures 12/28: Moraxella Ovis - Blood cultures 12/31: Pending - Hold off on antibiotics at this time Right lung opacity - possibly 2/2 malignancy, possibly 2/2 sarcoidosis - Has had biopsy completed in the past that was consistent with Sarcoidosis - Will likely require repeat imaging; however unable to obtain CT chest given his obesity HTN - Blood well controlled - s/p Furosemide - s/p amlodipine Super morbid obesity - BMI of 82.8 - Complicating medical care - c/w Nystatin powder for abdominal folds irritation - Patient will likely require outpatient follow up with PCP for consideration of bariatric surgery DVT prophylaxis - c/w Heparin Disposition: - Working with PFS to establish outpatient insurance coverage; to ensure patient can get oxygen/possible BiPAP - Possible trial off BIPAP today VS,Fishbone, I+O VS, Fishbone, I+O Laboratory Tests 01/02/20 04:38 Vital Signs Date Time Temp Pulse Resp B/P (MAP) Pulse Ox O2 Delivery O2 Flow Rate FiO2 01/02/20 07:36 30 01/02/20 07:00 77 115/58 (77) 96 NIPPV (BIPAP/CPAP) 01/02/20 06:01 20 01/02/20 04:01 97.8 01/01/20 18:00 2.0 I&O- Last 24 Hours up to 6 AM 01/02/20 06:00 Intake Total 810 ml Output Total 800 ml Balance 10 ml NISA PEÑA MD Jan 02, 2020 09:08
[2020-01-02 10:05] LABS: PHOSPHORUS LEVEL 3.2 MG/DL (2.5-4.9)
--- NOTE | 2020-01-02 12:35 | CCN ---
DATE: 12/31/2019 CRITICAL CARE TIME: One hour and 15 minutes. This excludes all procedures. SUBJECTIVE: I was called early this morning and overnight. Mr. Yanes is a 54-year-old male that I was called multiple times overnight with progressive hypercarbic respiratory failure. Adjustments were made to bilateral noninvasive ventilation to increase his pressure, his inspiratory pressure up to 26, expiratory pressure remains at 14 cm of water pressure, FiO2 remains at 0.40 as he has had no issues with worsening hypoxia; however, pCO2 and mental status have been worsening. This morning after I placed a nasal trumpet, he is able to answer questions now. He is able to tell me who the vice president lending is. He is able to tell me the month and the year and knows where he is. Currently, he is on pulling tidal volumes of 483 to 529 with a backup rate of 12, FiO2 of 0.40. He clearly has myoclonic jerking. He denies any pain. He states he had no illness prior to his presentation. He did not feel sick, he just felt very tired. He did have a net diuresis of 2.6 L yesterday. His pCO2 climbed with a stable pH; therefore, I have discontinued his Lasix as he is likely getting too alkalemic. He remains on heparin and Protonix for prophylaxis OBJECTIVE: VITAL SIGNS: Temperature is 98.0, pulse is 82, respiratory rate is 19, blood pressure is 171/75 although the cuff appears malaligned. Oxygen saturation is 97% on 0.40. GENRAL: The patient is on BiLevel noninvasive therapy. He is able to speak through his mask. He has a nasal trumpet in place. HEENT: Sclerae clear and anicteric. Pupils are small approximately 4 mm, but reactive to light. Mucous membranes moist. Tongue is midline. Mallampati 4 airway. NECK: Large circumference with significant extra tissue. Jugular venous pressure (JVP) is difficult to assess due to body habitus. LYMPHATICS: No cervical, supraclavicular, or axillary adenopathy. CARDIAC: Distant S1, S2 without audible murmur, rub, or gallop. JVP as mentioned above. There is no peripheral edema. PULMONARY: Decreased breath sounds throughout without rales, rhonchi, or wheezes. No dullness to percussion. Fair chest expansion despite obesity. ABDOMEN: Morbidly obese. I cannot palpate any internal organs. No discernable hepatosplenomegaly. I cannot auscultate any bruits. There is no mass. There is no palpable hernia. EXTREMITIES: No cyanosis, clubbing, or edema. Skin is pale without rash, jaundice, or bruising. LABORATORY EVALUATION: Shows a pH of 7.23, pO2 of 123, pO2 of 107. White blood cell count is 7.8, hemoglobin 14.8 with a platelet count of 200,000. Sodium is 137, potassium 4.3, chloride 91, bicarb 44, BUN 13, creatinine 0.83. TSH was tested normal at 2.2. IMAGING: Chest x-ray shows significant improvement. Continues to have a right perihilar density versus consolidation. ASSESSMENT/PLAN: 1. Acute hypercarbic respiratory failure with obesity hypoventilation as the most likely underlying cause. Will continue BiLevel noninvasive therapy. Patient would accept intubation and tracheostomy if necessary. If he continues to decompensate, this may be necessary; however, with discontinuing the diuretic therapy and placing nasal trumpet, we may be able to have him continue on BiLevel noninvasive therapy. He will require close monitoring as he is at high risk for the need for intubation. 2. Hypertension. I will initiate Norvasc. Will continue to monitor for blood pressures greater than 170. 3. History of sarcoid with new finding of right hilar density. VIDA level is pending. Patient will require further follow-up of this abnormality if he is to survive this hospitalization. 4. Deep vein thrombosis (DVT) prophylaxis with heparin three times a day. High risk for thromboembolic disease. 5. Protonix 40 mg for gastrointestinal (GI) prophylaxis. At this point in time, the patient is not able to eat being on noninvasive therapy continuously. Nutrition status will be addressed on a daily basis. Overall, the patient has a poor prognosis given the severity of his respiratory failure from obesity hypoventilation. Critical care time as mentioned above. This excludes all procedures. MTDD
--- NOTE | 2020-01-02 12:38 | CCN ---
DATE: 01/01/2020 CRITICAL CARE TIME: 51 minutes. This excludes all procedures. SUBJECTIVE: Mr. Yanes remains on BiLevel noninvasive therapy currently. Arterial blood gases still pending. He has had no new events overnight. No arrhythmias. He is awake and alert this morning. He is able to tell me he does not feel well. When asked to elaborate on this, he states his butt hurts. He denies any chest discomfort. No lower extremity pain. He has had no cough, fever, or chills. OBJECTIVE: VITAL SIGNS: Temperature 98.5, pulse 84, respiratory rate 22, blood pressure is 116/49. Oxygen saturation is 96% on 0.21 FiO2 currently on . GENERAL: Awake and alert, laying in bed. HEENT: Sclerae clear and anicteric. Pupils equal and reactive to light. Mucous membranes are moist. Mallampati 4. Tongue is midline. NECK: Large in circumference, difficult to assess jugular venous pressure (JVP). LYMPATICS: No cervical, supraclavicular, or axillary adenopathy. CARDIAC: Distant S1, S2 without audible murmur, rub, or gallop. PULMONARY: Clear to auscultation thought decreased air entry bilaterally. ABDOMEN: Obese with dependent edema. In the lower abdomen some minimal erythema of the pannus because of the dependent edema. No discernable mass or hepatosplenomegaly, although this is difficult to assess due to his body size. EXTREMITIES: No cyanosis, clubbing, or edema. SKIN: Pale without rash, jaundice, or bruising. MUSCULOSKELETAL: Has muscle weakness. Unable to support his own weight to adjust to a sitting position. We did adjust him to a sitting position today. Will attempt to mobilize the patient as much as possible despite being on ventilation in order to decrease muscle atrophy. NEUROLOGIC: No unilateral weakness. No further asterixis that was present yesterday. LABORATORY EVALUATION: Arterial blood gases still pending. Sodium is 137, potassium is 4.2, chloride is 91, bicarb of 42, BUN of 14, creatinine of 0.72, and a glucose of 88. Phos is low at 2.0. White blood cell count is 7.9, hemoglobin 14.0 with a platelet count of 222,000. ASSESSMENT/PLAN: 1. Acute on chronic hypercarbic hypoxic respiratory failure likely secondary to obesity hypoventilation. At this point in time, there is no obvious trigger for his respiratory decline, likely noncompliance with therapy at home due to insurance coverage. Recommend maintaining BiLevel until arterial blood gas is compensated. Once this compensated, will perform trials off BiLevel especially to provide nutrition. 2. Deep vein thrombosis (DVT) prophylaxis on heparin. 3. Hypophosphatemia. Replaced p.o. 4. Gastrointestinal (GI) prophylaxis on Protonix. 5. Hypertension. Blood pressure better controlled today. 6. Recent volume overload still likely has some volume overload; however, in order to compensate for his CO2 retention, diuresis is on hold at this point in time, but likely will need extensive diuresis before discharge. MTDD
--- NOTE | 2020-01-02 14:00 | CCN ---
DATE: 01/02/2020 REASON FOR PULMONARY CONSULT: BiPAP management. SUBJECTIVE: Mr. Yanes is sitting at his bedside, just finished his breakfast. He has been doing well without increased shortness of breath. No fevers or cough. Denies any lower extremity edema or calf pain. Denies any chest discomfort. He states he wants to try ambulating today. Arterial blood gases fairly compensated this morning with a mild respiratory acidosis of 7.34, pCO2 of 79, and pO2 of 135. He is able to have discussions. We discussed weight loss, different mechanisms for weight loss including dietary restrictions and possibly [employer]. He expresses understanding. OBJECTIVE: VITAL SIGNS: Temperature 97.8, pulse 77, blood pressure 115/58, respiratory rate 20. Oxygen saturation 96% on 0.03 FiO2 and BiLevel 26/14. GENERAL: Awake, alert, and oriented. No obvious tachypnea. HEENT: Has a bandage over the bridge of his nose from the pressure from the BiPAP. He also has a pressure sabina on the back of his head from the straps from the BiPAP. Tongue is midline. Mucous membranes are moist. Oropharynx without erythema or exudate. Mallampati 4. NECK: Large in circumference. No discernable jugular venous pressure (JVP). No thyromegaly or mass. LYMPHATIC: No cervical, supraclavicular, or axillary adenopathy. CARDIAC: Regular S1, S2 without audible murmur, rub, or gallops. PULMONARY: Clear to auscultation without rales, rhonchi, or wheezes. No dullness to percussion. No accessory muscle. ABDOMEN: Obese, soft, nontender, and nondistended. No hepatosplenomegaly. No masses or herniation. EXTREMITIES: No cyanosis, clubbing, or edema. No calf pain. SKIN: No rash, jaundice, or bruising. LABORATORY EVALUATION: Shows a white blood cell count of 5.6, hemoglobin 13.8, platelet count of 198,000, sodium 138, potassium 3.6, chloride 95, bicarb 42, BUN 17, creatinine 0.82 with an arterial blood gas of 7.34, pCO2 of 79, pO2 of 135. One bottle of the blood cultures when he first arrived on admission grew Moraxella. IMPRESSION/PLAN: 1. Acute on chronic hypercarbic respiratory failure better compensated. Will try off BiLevel while awake. He will require BiLevel noninvasive therapy for all forms of sleep. I believe this is likely a CPAP failure and he will require BiLevel at home. May not require as much inspiratory pressure as initially required. Therefore, will require retitration study. Will try to arrange this as soon as possible at the time of discharge when he is at his chronic stable state. 2. Moraxella positive blood culture x1. He has no fever. No chills. No white count. No evidence of infection. This may be a spurious result and at this point in time after discussing with the primary attending, it does not appear he requires antibiotics. We will continually monitor him for the need for antibiotic therapy. 3. Hypertension. Does not require any antihypertensive as blood pressure is actually on the lower side. 4. Deep vein thrombosis (DVT) prophylaxis with heparin and gastrointestinal (GI) prophylaxis with Protonix. Patient will be monitored closely in the intensive care unit (ICU) for decompensation. If he does well, we will change him over to table top tomorrow. MTDD
[2020-01-02] MEDS: PANTOPRAZOLE 40MG VIAL (C9113 PER 1) IV SCH (20:39)
[2020-01-03] VITALS (12 sets, daily range): BP systolic 104–150; BP diastolic 52–85
[2020-01-03 05:10] LABS: HEMATOCRIT 47.6 % (42.0-52.0); HEMOGLOBIN 13.8 g/dl (13.5-17.5); MEAN CORPUSCULAR HEMOGLOBIN 28.4 pg (27.0-33.0); MEAN CORPUSCULAR VOLUME 97.9 fl (80.0-96.0); PLATELET COUNT, AUTOMATED 190 10^3/uL (150-450); RED BLOOD COUNT 4.86 10^6/uL (4.30-6.10); WHITE BLOOD COUNT 5.4 10^3/uL (4.0-10.0)
[2020-01-03 05:36] LABS: BLOOD UREA NITROGEN 13 MG/DL (7-18); CALCIUM LEVEL 8.2 MG/DL (8.5-10.1); CARBON DIOXIDE LEVEL 40 MEQ/L (21-32); CHLORIDE LEVEL 97 MEQ/L (98-107); CREATININE FOR GFR 0.73 MG/DL (0.70-1.30); GLOMERULAR FILTRATION RATE > 60.0 (>56); GLUCOSE, FASTING 96 MG/DL (70-100); MAGNESIUM LEVEL 2.1 MG/DL (1.8-2.4); SODIUM LEVEL 141 MEQ/L (136-145)
[2020-01-03 05:49] LABS: ABG BASE EXCESS 11.6 (-2.0-2.0); ABG HCO3 41.1 MEQ/L (22.0-26.0); ABG O2 SATURATION 98.9 % (95.0-99.0); ABG PARTIAL PRESSURE O2 133.7 mmHg (75.0-100.0); ABG STANDARD HCO3 35.5 MEQ/L (22.0-26.0); ABG TOTAL CO2 43.5 MEQ/L (22.0-29.0); ABG pH (ARTERIAL) 7.338 UNITS (7.350-7.450)
[2020-01-03 05:50] LABS: ABG PARTIAL PRESSURE CO2 78.3 mmHg (35.0-45.0)
[2020-01-03] MEDS: HEPARIN SOD (PORCINE) 5000UNITS/ML 1ML VIAL/SYRINGE SC SCH ×3 (05:56→22:39)
--- NOTE | 2020-01-03 09:54 | IPNPDOC ---
Text Note Date of Service The patient was seen on 01/03/20. NOTE Subjective: Patient is a 54-year-old male with past medical history of congestive heart failure, sleep apnea on CPAP was presented to the emergency room with shortness of breath over the last 1 month duration. Patient reports that over the course of 1 month hes been experience and worsening shortness of breath., Shortness of breath was worse with exertion but now occurs at rest. Patient denies any chest pain at rest, however, does report chest pain with exertion. Patient describes the chest pain is throbbing in nature and resolves quickly. Patient has an associated dry cough without any expectoration. Has not experience any fevers or chills but does experience intermittent lower extremity swelling. Patient has reported that over the duration of 1 year he has lost insurance coverage. Since that point he was unable to maintain his home oxygen that he bleeds into his CPAP device, so he has been without oxygen and his CPAP for greater than 1 year. He is also failed to follow-up with any providers. Patient follows with Dr. Porras and Dr. Cristina, but has last seen 1 year ago. Patient was seen and examined at the bedside. Patient reports that yesterday he was able to tolerate a day off of BiPAP and only used it with sleep at night. Berny dumont denies any chest pain, palpitations or cough. Denies any nausea, vomiting, abdominal pain, diarrhea, or urinary discomfort. Objective: Vitals (See below) General: Lying in bed, does not appear to be in any distress, awake alert and oriented 3 HEENT: Normocephalic, atraumatic CVS: +S1S2 Lungs: Fair air entry bilaterally, no wheezing, rhonchi or rales Abdomen: Soft, nondistended, nontender, significant obesity Extremities: Lower extremities are without any pitting edema, - Calf tenderness Assessment and plan: Acute hypoxic and hypercapnia respiratory failure - possibly 2/2 obesity hypoventilation syndrome and non-compliance - On arrival to ER, patient was SOB, had blue lips - cyanotic; was placed on 100% nonrebreather, then on BiPAP - Currently patient appears to be significantly improved, was able to tolerate a day off of BiPAP; was kept on BiPAP only at night - ABG noted - remains relatively stable - No leukocytosis - CXR 12/28: 1. Focal consolidation right perihilar region which may be due to pneumonia or an underlying mass. 2. Probable subsegmental atelectasis at the left lung base. - ECHO 12/28: Features of diastolic dysfunction, mild tricuspid regurgitation with moderate pulmonary hypertension, dilated right heart chambers with some degree of right ventricular systolic dysfunction - c/w Strict in/outs, daily weight, fluid restriction, telemetry - s/p Furosemide and Amlodipine - Pulmonology on consultation; appreciate their input - PFS on consult to help ensure insurance coverage / equipment coverage as out patient Positive blood cultures (1 of 2) - possibly 2/2 contaminant (Moraxella Ovis) - Remains hemodynamically stable and afebrile - No leukocytosis - Blood cultures 12/28: Moraxella Ovis - Blood cultures 12/31: No growth at 24 hours - Hold off on antibiotics at this time Right lung opacity - possibly 2/2 malignancy, possibly 2/2 sarcoidosis - Has had biopsy completed in the past that was consistent with Sarcoidosis - Will likely require repeat imaging; however unable to obtain CT chest given his obesity s/p HTN - Blood well controlled without medications - s/p Furosemide and Amlodipine Super morbid obesity - BMI of 82.8 - Complicating medical care - c/w Nystatin powder for abdominal folds irritation - Patient will likely require outpatient follow up with PCP for consideration of bariatric surgery DVT prophylaxis - c/w Heparin (adjusted for weight) Disposition: - Working with PFS to establish outpatient insurance coverage; to ensure patient can get oxygen/possible BiPAP - Trial of table top BiPAP at night VS,Fishbone, I+O VS, Fishbone, I+O Laboratory Tests 01/03/20 04:46 Vital Signs Date Time Temp Pulse Resp B/P (MAP) Pulse Ox O2 Delivery O2 Flow Rate FiO2 01/03/20 08:00 30 01/03/20 08:00 97.0 87 28 117/56 (76) 93 Nasal Cannula 2.0 I&O- Last 24 Hours up to 6 AM 01/03/20 06:00 Intake Total 1140 ml Output Total 600 ml Balance 540 ml NISA PEÑA MD Jan 03, 2020 09:54
--- NOTE | 2020-01-03 14:25 | REP ---
PORTABLE CHEST X-RAY: 2-VIEWS HISTORY: Pulmonary edema. COMPARISON STUDY: 12/29/2019 and 06/05/2017. FINDINGS: There is a large irregular density in the right parahilar region suggesting mass, versus potentially fissural fluid (aka pseudotumor). This is essentially unchanged from the previous day radiographs. There is extensive interstitial fibrosis pattern throughout the perihilar regions bilaterally. There is chronic fullness in the mediastinum and AP window region, question adenopathy. No new infiltrate when compared with the 12/29/2019 study. IMPRESSION: Advanced diffuse interstitial fibrosis. Large mass-like opacity right perihilar region. Neoplastic mass versus fissural fluid. No change from the previous day study. MTDD
[2020-01-03] MEDS: PANTOPRAZOLE 40MG VIAL (C9113 PER 1) IV SCH (20:40)
[2020-01-04] VITALS (7 sets, daily range): BP systolic 102–143; BP diastolic 57–81
[2020-01-04 04:22] LABS: HEMATOCRIT 46.3 % (42.0-52.0); HEMOGLOBIN 13.5 g/dl (13.5-17.5); MEAN CORPUSCULAR HEMOGLOBIN 27.8 pg (27.0-33.0); MEAN CORPUSCULAR HGB CONC 29.2 g/dl (32.0-36.5); MEAN CORPUSCULAR VOLUME 95.5 fl (80.0-96.0); PLATELET COUNT, AUTOMATED 179 10^3/uL (150-450); RED BLOOD COUNT 4.85 10^6/uL (4.30-6.10); WHITE BLOOD COUNT 5.1 10^3/uL (4.0-10.0)
[2020-01-04 04:42] LABS: BLOOD UREA NITROGEN 11 MG/DL (7-18); CALCIUM LEVEL 8.2 MG/DL (8.5-10.1); CARBON DIOXIDE LEVEL 39 MEQ/L (21-32); CHLORIDE LEVEL 98 MEQ/L (98-107); CREATININE FOR GFR 0.72 MG/DL (0.70-1.30); GLOMERULAR FILTRATION RATE > 60.0 (>56); GLUCOSE, FASTING 86 MG/DL (70-100); MAGNESIUM LEVEL 2.1 MG/DL (1.8-2.4); POTASSIUM SERUM 4.4 MEQ/L (3.5-5.1); SODIUM LEVEL 141 MEQ/L (136-145)
[2020-01-04 06:15] LABS: ABG BASE EXCESS 12.3 (-2.0-2.0); ABG HCO3 39.9 MEQ/L (22.0-26.0); ABG O2 SATURATION 95.5 % (95.0-99.0); ABG PARTIAL PRESSURE O2 76.7 mmHg (75.0-100.0); ABG STANDARD HCO3 36.1 MEQ/L (22.0-26.0); ABG TOTAL CO2 41.9 MEQ/L (22.0-29.0); ABG pH (ARTERIAL) 7.412 UNITS (7.350-7.450)
[2020-01-04 06:18] LABS: ABG PARTIAL PRESSURE CO2 64.1 mmHg (35.0-45.0)
[2020-01-04] MEDS: HEPARIN SOD (PORCINE) 5000UNITS/ML 1ML VIAL/SYRINGE SC SCH ×3 (06:36→22:12)
--- NOTE | 2020-01-04 07:05 | CCN ---
PULMONARY NOTE DATE: 01/03/2020 HISTORY OF PRESENT ILLNESS: Moises feels good today. No chest discomfort. He has been sitting at the side of the bed. He was able to eat breakfast. Denies any increased shortness of breath, cough, fever, or chills. He is having some pressure ulceration on the back of his head from the straps. Because he has lightened the straps, he has noticed some more air leak from the mask. I will attempt to get him a new mask and new head gear today to see if this alleviates his symptoms. PHYSICAL EXAMINATION: VITAL SIGNS: Pulse is 87, blood pressure is 117/56, oxygen saturation is 93% on 2 L. Overnight he remained on BiLevel noninvasive therapy . Temperature is 97.0. He has been afebrile over the past two days. GENERAL: Awake, alert, and oriented. Affect and mood are appropriate. Nutrition and hygiene are good. HEENT: Sclerae clear and anicteric. Pupils equal and reactive to light. Mucous membranes moist without lesions. Oropharynx is crowded without erythema or exudate. Tongue is midline. NECK: Supple. No tracheal deviation. No mass or lesion. LYMPHATICS: No cervical, supraclavicular, or axillary adenopathy. CARDIAC: Regular S1, S2 without audible murmur, rub, or gallop. No elevated jugular venous pressure (JVP) as it is not discernable given body habitus. PMI is also difficult to palpate. PULMONARY: Decreased breath sounds throughout without rales, rhonchi, or wheezes. No dullness to percussion. Some decrease in chest expansion. ABDOMEN: Obese, soft, and nontender with hyperactive bowel sounds. No discernable hepatosplenomegaly or mass. There is dependent edema of the pannus. EXTREMITIES: No cyanosis, clubbing, or edema. MUSCULOSKELETAL: Moves all extremities, but is impaired by his obesity. No evidence of joint effusion. NEUROLOGIC: No asterixis or tremor. LABORATORY EVALUATION: Shows sodium 141, potassium 4.0, chloride 97, bicarb 40, BUN 13, creatinine 0.73 with a white blood cell count of 5.4, hemoglobin 13.8, hematocrit of 47.6 with a platelet count of 190,000. Blood cultures are negative x2 so far, which were repeated due to one blood culture being positive for Moraxella thought to be contaminant. IMPRESSION AND PLAN: Hypercarbic respiratory failure secondary to obesity hypoventilation. Failed outpatient CPAP. Therefore, requires BiLevel at home. Will attempt to obtain this at home for him. His ask will be changed today to hopefully avoid pressure over the same area. Will continue to monitor and adjust mask fitting as tolerated. We will change him to a table top today. MTDD
--- NOTE | 2020-01-04 08:02 | REP ---
PORTABLE CHEST X-RAY: 2-VIEWS HISTORY: Hypercarbic respiratory failure. COMPARISON: Chest x-ray 12/30/2019 and 12/29/2019. FINDINGS: A large mass-like opacity persists in the right parahilar region. There is advanced diffuse interstitial lung disease consistent with fibrosis. Mild cardiomegaly is observed. There is fullness in the mediastinum unchanged. No new acute infiltrate. No evidence of pleural effusion. MTDD
--- NOTE | 2020-01-04 08:21 | IPNPDOC ---
Text Note Date of Service The patient was seen on 01/04/20. NOTE Subjective: Patient is a 54-year-old male with past medical history of congestive heart failure, sleep apnea on CPAP was presented to the emergency room with shortness of breath over the last 1 month duration. Patient reports that over the course of 1 month hes been experience and worsening shortness of breath., Shortness of breath was worse with exertion but now occurs at rest. Patient denies any chest pain at rest, however, does report chest pain with exertion. Patient describes the chest pain is throbbing in nature and resolves quickly. Patient has an associated dry cough without any expectoration. Has not experience any fevers or chills but does experience intermittent lower extremity swelling. Patient has reported that over the duration of 1 year he has lost insurance coverage. Since that point he was unable to maintain his home oxygen that he bleeds into his CPAP device, so he has been without oxygen and his CPAP for greater than 1 year. He is also failed to follow-up with any providers. Patient follows with Dr. Porras and Dr. Cristina, but has last seen 1 year ago. Patient was seen and examined at the bedside. Partially sitting up in bed, denied any problems overnight. Denied any chest pain, shortness breath or palpitations. Patient has not experience any nausea, vomiting, pain, diarrhea, or urinary discomfort. Objective: Vitals (See below) General: Partially sitting up in bed, comfortable, no acute distress, awake, alert, oriented 3 HEENT: Normocephalic, atraumatic CVS: +S1S2 Lungs: Air entry is fair bilaterally without any auscultated rhonchi, crackles or wheezing Abdomen: Abdomen remains soft, morbidly obese, nondistended and nontender Extremities: Trace edema appreciated at lower extremities, - Calf tenderness Assessment and plan: Acute hypoxic and hypercapnia respiratory failure - possibly 2/2 obesity hypoventilation syndrome and non-compliance - On arrival to ER, patient was SOB, had blue lips - cyanotic; was placed on 100% nonrebreather, then on BiPAP - Patient was tolerated table top BiPAP throughout the night; will likely downgrade patient from ICU - ABG this morning shows continued improvement of PCO2 - No leukocytosis - CXR 12/28: 1. Focal consolidation right perihilar region which may be due to pneumonia or an underlying mass. 2. Probable subsegmental atelectasis at the left lung base. - ECHO 12/28: Features of diastolic dysfunction, mild tricuspid regurgitation with moderate pulmonary hypertension, dilated right heart chambers with some degree of right ventricular systolic dysfunction - c/w Strict in/outs, daily weight, fluid restriction, telemetry - s/p Furosemide and Amlodipine - Pulmonology on consultation; appreciate their input - PFS on consult to help ensure insurance coverage / equipment coverage as outpatient - the patient will require BiPAP on discharge Positive blood cultures (1 of 2) - possibly 2/2 contaminant (Moraxella Ovis) - Remains hemodynamically stable and afebrile - No leukocytosis - Blood cultures 12/28: Moraxella Ovis - Blood cultures 12/31: No growth at 48 hours - Hold off on antibiotics at this time Right lung opacity - possibly 2/2 malignancy, possibly 2/2 sarcoidosis - Has had biopsy completed in the past that was consistent with Sarcoidosis - May require repeat imaging; however unable to obtain CT chest given his obesity s/p HTN - Blood well controlled without medications - s/p Furosemide and Amlodipine Super morbid obesity - BMI of 82.8 - Complicating medical care - c/w Nystatin powder for abdominal folds irritation - Patient will likely require outpatient follow up with PCP for consideration of bariatric surgery DVT prophylaxis - c/w Heparin Disposition: - PFS / Case management are working to establish outpatient insurance coverage; coverage of BiPAP - Downgrade today VS,Fishbone, I+O VS, Fishbone, I+O Laboratory Tests 01/04/20 03:40 Vital Signs Date Time Temp Pulse Resp B/P (MAP) Pulse Ox O2 Delivery O2 Flow Rate FiO2 01/04/20 08:00 2.0 01/04/20 07:42 98.0 80 24 120/62 (81) 91 Nasal Cannula 01/03/20 12:00 30 I&O- Last 24 Hours up to 6 AM 01/04/20 06:00 Intake Total 1410 ml Balance 1410 ml NISA PEÑA MD Jan 04, 2020 08:21
--- NOTE | 2020-01-04 15:04 | IPN ---
DATE: 01/04/2020 SUBJECTIVE: Mr. Yanes is seen in the ICU. He is on BiPAP with a 4 liter oxygen bleed in at nighttime. During the day he has been tolerating just being on nasal cannula with 4 liters. He has been afebrile and has had no new issues. Patient does feel that he is gradually improving. He has been trying different masks and feeling more comfortable with the BiPAP. PHYSICAL EXAMINATION: Vitals: Temperature 98.9, pulse 78, respiratory rate 22, blood pressure 102/59, pulse ox 91% on BiPAP with 4 liter oxygen bleed in. patient is currently on oxygen 4 liters by nasal cannula. General: Patient is alert and oriented. He is sitting up in a chair. He speaks in complete sentences. HEENT: Head is normocephalic, atraumatic. Moist mucous membranes. Tongue is middling. Neck: Supple, trachea is midline. No cervical lymphadenopathy. No obvious JVD. Heart: Regular rate and rhythm, S1 and S2, without murmurs, rubs or gallops. Pulmonary: Diminished breath sounds throughout with rales, rhonchi, wheezes or crackles. No accessory muscle use. Abdomen: Obese, positive bowel sounds, soft, nontender. No obvious hepatosplenomegaly; however, this is difficult to elicit due to body habitus. Extremities: No cyanosis, clubbing or edema. Neurologic: Nonfocal. LABORATORY DATA: pH 7.412, PCO2 64.1, PO2 76.7. WBC 5.1, hemoglobin 13.5, hematocrit 46.3, platelets 179. Sodium 141, potassium 4.4, chloride 98, carbon dioxide 39, BUN 11, creatinine 0.72, glucose 86, calcium 8.2, magnesium 2.1. ASSESSMENT AND PLAN: Hypercarbic respiratory failure secondary to obesity hypoventilation: Patient failed CPAP at home. He has been doing well with BiPAP. He requires continued BiPAP. We are working on obtaining BiPAP for the patient in order to get him home on BiPAP. He is tolerating the new mask. Continue to monitor. MTDD
[2020-01-04] MEDS: PANTOPRAZOLE 40MG VIAL (C9113 PER 1) IV SCH (22:12)
[2020-01-05 05:49] LABS: ABG BASE EXCESS 8.6 (-2.0-2.0); ABG HCO3 35.4 MEQ/L (22.0-26.0); ABG O2 SATURATION 92.8 % (95.0-99.0); ABG PARTIAL PRESSURE CO2 57.7 mmHg (35.0-45.0); ABG PARTIAL PRESSURE O2 65.2 mmHg (75.0-100.0); ABG STANDARD HCO3 32.3 MEQ/L (22.0-26.0); ABG TOTAL CO2 37.2 MEQ/L (22.0-29.0); ABG pH (ARTERIAL) 7.406 UNITS (7.350-7.450)
[2020-01-05 06:00] VITALS: BP 110/69
[2020-01-05] MEDS: HEPARIN SOD (PORCINE) 5000UNITS/ML 1ML VIAL/SYRINGE SC SCH ×3 (06:39→21:46)
[2020-01-05 07:46] LABS: HEMATOCRIT 48.6 % (42.0-52.0); HEMOGLOBIN 14.3 g/dl (13.5-17.5); MEAN CORPUSCULAR HEMOGLOBIN 27.6 pg (27.0-33.0); MEAN CORPUSCULAR HGB CONC 29.4 g/dl (32.0-36.5); MEAN CORPUSCULAR VOLUME 93.8 fl (80.0-96.0); PLATELET COUNT, AUTOMATED 201 10^3/uL (150-450); RED BLOOD COUNT 5.18 10^6/uL (4.30-6.10); WHITE BLOOD COUNT 4.7 10^3/uL (4.0-10.0)
[2020-01-05 08:07] LABS: BLOOD UREA NITROGEN 10 MG/DL (7-18); CALCIUM LEVEL 8.7 MG/DL (8.5-10.1); CARBON DIOXIDE LEVEL 34 MEQ/L (21-32); CHLORIDE LEVEL 100 MEQ/L (98-107); CREATININE FOR GFR 0.78 MG/DL (0.70-1.30); GLOMERULAR FILTRATION RATE > 60.0 (>56); GLUCOSE, FASTING 138 MG/DL (70-100); MAGNESIUM LEVEL 2.1 MG/DL (1.8-2.4); POTASSIUM SERUM 4.2 MEQ/L (3.5-5.1); SODIUM LEVEL 140 MEQ/L (136-145)
[2020-01-05] MEDS ORDERED: NYST10006 TOP (09:46)
--- NOTE | 2020-01-05 09:56 | DS.PDOC ---
Discharge Summary General Date of Admission Dec 29, 2019 at 17:16 Date of Discharge ADDENDUM TO DATE: 01/06/2020 - Patient remain in the hospital for an additional day in order to ensure oxygen setup at home Discharge Summary PROCEDURES PERFORMED DURING STAY: [None] ADMITTING DIAGNOSES / DISCHARGE DIAGNOSES: Acute hypoxic and hypercapnia respiratory failure - possibly 2/2 obesity hypoventilation syndrome and non-compliance Positive blood cultures (1 of 2) - possibly 2/2 contaminant (Moraxella Ovis) Right lung opacity - possibly 2/2 malignancy, possibly 2/2 sarcoidosis s/p HTN Super morbid obesity DVT prophylaxis COMPLICATIONS/CHIEF COMPLAINT: Shortness of breath HISTORY OF PRESENT ILLNESS: Patient is a 54-year-old male with past medical history of congestive heart failure, sleep apnea on CPAP was presented to the emergency room with shortness of breath over the last 1 month duration. Patient reports that over the course of 1 month hes been experience and worsening shortness of breath., Shortness of breath was worse with exertion but now occurs at rest. Patient denies any chest pain at rest, however, does report chest pain with exertion. Patient describes the chest pain is throbbing in nature and resolves quickly. Patient has an associated dry cough without any expectoration. Has not experience any fevers or chills but does experience intermittent lower extremity swelling. Patient has reported that over the duration of 1 year he has lost insurance coverage. Since that point he was unable to maintain his home oxygen that he bleeds into his CPAP device, so he has been without oxygen and his CPAP for greater than 1 year. He is also failed to follow-up with any providers. Patient follows with Dr. Porras and Dr. Cristina, but has last seen 1 year ago. HOSPITAL COURSE: Acute hypoxic and hypercapnia respiratory failure - possibly 2/2 obesity hypoventilation syndrome and non-compliance - On arrival to ER, patient was SOB, had blue lips - cyanotic; was placed on 1 00% nonrebreather, then on BiPAP - Patient has done well with tabletop BiPAP overnight - ABG continues to reveal improvement, PCO2 - No leukocytosis - CXR 12/28: 1. Focal consolidation right perihilar region which may be due to pneumonia or an underlying mass. 2. Probable subsegmental atelectasis at the left lung base. - ECHO 12/28: Features of diastolic dysfunction, mild tricuspid regurgitation w ith moderate pulmonary hypertension, dilated right heart chambers with some degree of right ventricular systolic dysfunction - c/w Strict in/outs, daily weight, fluid restriction; s/p telemetry - s/p Furosemide and Amlodipine - Pulmonology on consultation; appreciate their input - Patient will be discharged with BiPAP and oxygen as an outpatient - Will have outpatient follow-up with pulmonology, Dr. Porras within the next 14 days Positive blood cultures (1 of 2) - possibly 2/2 contaminant (Moraxella Ovis) - Remains hemodynamically stable and afebrile - No leukocytosis - Blood cultures 12/28: Moraxella Ovis - Blood cultures 12/31: No growth at 48 hours - Hold off on antibiotics at this time Right lung opacity - possibly 2/2 malignancy, possibly 2/2 sarcoidosis - Has had biopsy completed in the past that was consistent with Sarcoidosis - May require repeat imaging; however unable to obtain CT chest given his obesity - Will have outpatient follow-up with pulmonology, Dr. Porras within the next 14 days s/p HTN - Blood pressure is well controlled - s/p Furosemide and Amlodipine Super morbid obesity - BMI of 82.8 - Complicating medical care - c/w Nystatin powder for abdominal folds irritation - Patient will likely require outpatient follow up with PCP for consideration of bariatric surgery DVT prophylaxis - c/w Heparin DISCHARGE MEDICATIONS: Please see below. ALLERGIES: Please see below. PHYSICAL EXAMINATION ON DISCHARGE: Vitals (See below) General: Patient sitting at the edge of the bed, appears to be comfortable, in no acute distress, awake, alert, oriented 3 HEENT: Normocephalic, atraumatic CVS: +S1S2 Lungs: Air entry appears to be fair bilaterally without evidence of rhonchi, crackles or wheezing Abdomen: Soft, ND, NT, Obese Extremities: LE are without edema, - Calf tenderness LABORATORY DATA: Please see below. ACTIVITY: [As tolerated]. DISCHARGE PLAN: Follow-up with primary care provider within 7 days and pulmonology within 2 weeks Remain compliant with treatment plan and medications Return to the ER if you experience any problems DISPOSITION: Home with services DISCHARGE CONDITION: [Stable]. TIME SPENT ON DISCHARGE: 35 minutes. Vital Signs/I&Os Vital Signs Date Time Temp Pulse Resp B/P (MAP) Pulse Ox O2 Delivery O2 Flow Rate FiO2 10/14/20 06:00 98.6 82 20 110/69 (83) 91 Nasal Cannula 2.0 01/03/20 12:00 30 I&O- Last 24 Hours up to 6 AM 01/05/20 06:00 Intake Total 630 ml Balance 630 ml Laboratory Data Labs 24H Laboratory Tests 2 01/05/20 05:30: Blood Gas Bicarbonate Standard 32.3H, Arterial Blood pH 7.406, Arterial Blood Partial Pressure CO2 57.7H, Arterial Blood Partial Pressure O2 65.2L, Arterial Blood Total CO2 37.2H, Arterial Blood HCO3 35.4H, Arterial Blood Base Excess 8.6H, Arterial Blood Oxygen Saturation 92.8L 01/05/20 07:28: Nucleated Red Blood Cells % (auto) 0.0, Anion Gap 6L, Glomerular Filtration Rate > 60.0, Calcium Level 8.7, Magnesium Level 2.1 CBC/BMP Laboratory Tests 01/05/20 07:28 Microbiology Microbiology 01/01/20 Blood Culture - Preliminary, Resulted No Growth after 72 hours. All specime... 01/01/20 Blood Culture - Preliminary, Resulted No Growth after 72 hours. All specime... 12/29/19 Respiratory Virus Panel (PCR) ([facility]) - Final, Complete 12/29/19 Blood Culture - Final, Complete Moraxella (Neisseria) Ovis 12/29/19 Blood Culture - Final, Complete NO GROWTH AFTER 5 DAYS Discharge Medications Scheduled PRN Nystatin (Nystop) 60 Gm Powder, 0 DOSE TOP BIDP PRN for RASH Allergies Coded Allergies: No Known Allergies (Unverified , 12/29/19) NISA PEÑA MD Jan 05, 2020 09:56
[2020-01-05 14:00] VITALS: BP 117/64
[2020-01-05] MEDS: PANTOPRAZOLE 40MG VIAL (C9113 PER 1) IV SCH (21:46)
[2020-01-05 22:00] VITALS: BP 112/62
[2020-01-06 05:47] LABS: ABG BASE EXCESS 2.9 (-2.0-2.0); ABG HCO3 30.8 MEQ/L (22.0-26.0); ABG O2 SATURATION 96.1 % (95.0-99.0); ABG PARTIAL PRESSURE O2 82.7 mmHg (75.0-100.0); ABG TOTAL CO2 32.6 MEQ/L (22.0-29.0); ABG pH (ARTERIAL) 7.322 UNITS (7.350-7.450)
[2020-01-06 05:51] LABS: ABG PARTIAL PRESSURE CO2 60.8 mmHg (35.0-45.0)
[2020-01-06 06:00] VITALS: BP 114/75
[2020-01-06] MEDS ORDERED: IPRATROPIUM 0.5MG/ALBUTEROL 2.5MG INH SOL UD 3ML (DUONEB) NEB ONE (06:15)
[2020-01-06] MEDS: HEPARIN SOD (PORCINE) 5000UNITS/ML 1ML VIAL/SYRINGE SC SCH (06:20)
== END 2020-01-06 14:00 | disposition home health service (06) | DRG 133 ==
LOC: M ED 14:50 → M ED INP 17:16 → ENRESERV 18:26 → M ICU 20:37 → M MS5PR 01-04 17:15
PROVIDERS: ADMIT Internal Medicine; ATTEND Internal Medicine
PROC: 5A09557 Assistance with Respiratory Ventilation, Greater than 96 Consecutive Hours, Continuous Positive Airway Pressure (ICD-10-PCS; principal; 2019-12-29)
DX: J96.01 Acute respiratory failure with hypoxia (principal); Z99.81 Dependence on supplemental oxygen; E66.2 Morbid (severe) obesity with alveolar hypoventilation; Z68.45 Body mass index [BMI] 70 or greater, adult; D86.9 Sarcoidosis, unspecified; I50.9 Heart failure, unspecified; Z20.828 Contact with and (suspected) exposure to other viral communicable diseases; Z91.19 Patient's noncompliance with other medical treatment and regimen; J96.02 Acute respiratory failure with hypercapnia; E83.39 Other disorders of phosphorus metabolism; R91.8 Other nonspecific abnormal finding of lung field; I11.0 Hypertensive heart disease with heart failure

== ENCOUNTER → 2020-02-21 | Outpatient (CLI) | payer OTHER, SELFPAY ==
[~2020-02-21] MED LIST: NYST10006 TOP
--- NOTE | 2020-02-21 20:46 | REPPI ---
INDICATION: ACUTE AND CHRONIC RESPIRATORY FALURE W/HYPERCAPNIA COMPARISON: 12/31/2019, 04/22/2017 TECHNIQUE: PA and lateral. FINDINGS: Mediastinum and cardiac silhouette are stable. Diffuse chronic fibrosis and scattered reticulonodular interstitial disease is again noted and similar to prior examinations. No discrete new focal large consolidation is appreciated. No effusion. No pneumothorax. Skeletal structures are intact. IMPRESSION: Diffuse chronic fibrosis and reticulonodular interstitial disease similar to multiple prior examinations. <Electronically signed by Romel Crocker > 02/21/20 [id number]
== END ==
LOC: M PLALAB 11:20
PROVIDERS: ATTEND Internal Medicine Pulmonary Disease
DX: J96.22 Acute and chronic respiratory failure with hypercapnia (principal); J84.10 Pulmonary fibrosis, unspecified

== ENCOUNTER 2021-12-07 22:51 | Emergency (ER) | payer OTHER ==
[~2021-12-07] VITALS: Ht 177.8 cm; Wt 181.8 kg
[2021-12-07] MEDS ORDERED: TORS20TA2 PO (22:59)
[2021-12-07] MEDS ORDERED: ASPI81CH33 PO (22:59)
[2021-12-08 04:55] LABS: HEMATOCRIT 42.4 % (42.0-52.0); HEMOGLOBIN 13.8 g/dl (13.5-17.5); MEAN CORPUSCULAR HEMOGLOBIN 30.2 pg (27.0-33.0); MEAN CORPUSCULAR HGB CONC 32.5 g/dl (32.0-36.5); MEAN CORPUSCULAR VOLUME 92.8 fl (80.0-96.0); PLATELET COUNT, AUTOMATED 245 10^3/uL (150-450); RED BLOOD COUNT 4.57 10^6/uL (4.30-6.10); WHITE BLOOD COUNT 9.4 10^3/uL (4.0-10.0)
[2021-12-08 05:27] LABS: ALBUMIN 3.6 GM/DL (3.2-5.2); ALT/SGPT 26 U/L (12-78); BILIRUBIN,TOTAL 0.4 MG/DL (0.2-1.0); BLOOD UREA NITROGEN 19 MG/DL (7-18); CALCIUM LEVEL 9.1 MG/DL (8.5-10.1); CARBON DIOXIDE LEVEL 28 MEQ/L (21-32); CHLORIDE LEVEL 105 MEQ/L (98-107); CREATININE FOR GFR 0.94 MG/DL (0.70-1.30); GLOMERULAR FILTRATION RATE > 60.0 (>56); GLUCOSE, FASTING 106 MG/DL (70-100); POTASSIUM SERUM 4.3 MEQ/L (3.5-5.1); SODIUM LEVEL 139 MEQ/L (136-145)
[2021-12-08] MEDS ORDERED: LIDOCAINE 5% (LIDODERM) PATCH TD ONE (07:00)
[2021-12-08] MEDS ORDERED: ACETAMINOPHEN 500 MG TAB PO ONE (07:00)
[2021-12-08] MEDS ORDERED: KETOROLAC 30 MG/ML 1ML VIAL IV ONE (07:00)
[2021-12-08] MEDS ORDERED: LIDO5DIS41 TD (10:30)
[2021-12-08 10:55] VITALS: BP 108/60
[2021-12-08] MEDS ORDERED: **NOTE PATIENT COMMENT** MISC XX SCH (21:00)
== END 2021-12-08 10:59 | disposition home or self-care (01) ==
LOC: M ED 22:51
DX: M54.50 Low back pain, unspecified (principal); I50.9 Heart failure, unspecified; G47.30 Sleep apnea, unspecified; E66.9 Obesity, unspecified; Z79.899 Other long term (current) drug therapy
CPT/HCPCS: 80053; 85027; 96374; 99284; J1885

== ENCOUNTER → 2024-06-15 | Outpatient (CLI) | payer OTHER ==
[~2024-06-15] MED LIST changes: +ASPI81CH33 PO; +LIDO5DIS41 TD; +TORS20TA2 PO
[2024-06-15 10:55] LABS: HEMATOCRIT 49.6 % (42.0-52.0); HEMOGLOBIN 16.3 g/dl (13.5-17.5); MEAN CORPUSCULAR HGB CONC 32.9 g/dl (32.0-36.5); MEAN CORPUSCULAR VOLUME 91.3 fl (80.0-96.0); PLATELET COUNT, AUTOMATED 263 10^3/uL (150-450); RED BLOOD COUNT 5.43 10^6/uL (4.30-6.10); WHITE BLOOD COUNT 8.4 10^3/uL (4.0-10.0)
[2024-06-15 11:33] LABS: ALBUMIN 3.5 G/DL (3.2-5.2); ALKALINE PHOSPHATASE 128 U/L (40-129); ALT/SGPT 79 U/L (7.0-40); AST/SGOT 58 U/L (<34); BILIRUBIN,TOTAL 0.6 MG/DL (0.3-1.2); BLOOD UREA NITROGEN 14 MG/DL (9-23); CALCIUM LEVEL 9.4 MG/DL (8.5-10.1); CARBON DIOXIDE LEVEL 24 MMOL/L (20-31); CHLORIDE LEVEL 98 MMOL/L (98-107); CHOLESTEROL LEVEL 188 MG/DL (<200); CHOLESTEROL RISK RATIO 5.17 (<5); GLOMERULAR FILTRATION RATE > 60.0 (>56); GLUCOSE, FASTING 382 MG/DL (60-100); HDL CHOLESTEROL 36.3 MG/DL (>40); LDL CHOLESTEROL 110.5 MG/DL (<100); NON-HDL-C 151.7 MG/DL; POTASSIUM SERUM 4.4 MMOL/L (3.5-5.1); SODIUM LEVEL 134 MMOL/L (136-145); TOTAL PROTEIN 8.1 G/DL (5.7-8.2); TRIGLYCERIDES LEVEL 206 MG/DL (<150)
[2024-06-15 12:41] LABS: HEMOGLOBIN A1c > 14.0 % (4.0-6.0)
== END ==
LOC: M PLALAB 07:26
PROVIDERS: ATTEND Physician Assistant
DX: I50.32 Chronic diastolic (congestive) heart failure (principal); Z13.220 Encounter for screening for lipoid disorders; E66.01 Morbid (severe) obesity due to excess calories; Z13.1 Encounter for screening for diabetes mellitus

== ENCOUNTER → 2024-10-20 | Outpatient (CLI) | payer OTHER ==
[~2024-10-20] MED LIST changes: +LIDO1ADH93 TD; -LIDO5DIS41 TD
[2024-10-20 11:08] LABS: ALT/SGPT 52 U/L (7.0-40); AST/SGOT 55 U/L (<34); CALCIUM LEVEL 9.0 MG/DL (8.5-10.1); CARBON DIOXIDE LEVEL 26 MMOL/L (20-31); CHLORIDE LEVEL 100 MMOL/L (98-107); CHOLESTEROL LEVEL 107 MG/DL (<200); CHOLESTEROL RISK RATIO 2.89 (<5); CREATININE FOR GFR 0.82 MG/DL (0.70-1.30); GLOMERULAR FILTRATION RATE > 90.0 (>56); LDL CHOLESTEROL 47.8 MG/DL (<100); NON-HDL-C 70.0 MG/DL; POTASSIUM SERUM 3.9 MMOL/L (3.5-5.1); SODIUM LEVEL 141 MMOL/L (136-145); TRIGLYCERIDES LEVEL 111 MG/DL (<150)
== END ==
LOC: M PLALAB 06:53
PROVIDERS: ATTEND Physician Assistant
DX: I50.32 Chronic diastolic (congestive) heart failure (principal); E78.2 Mixed hyperlipidemia